=== PATIENT | female | born 1985 | race Caucasian/White ===

== ENCOUNTER 2019-12-31 12:12 | Emergency (ER) | payer MEDICAID ==
[~2019-12-31] VITALS: Ht 165.1 cm; Wt 60.0 kg
[2019-12-31 12:56] VITALS: BP 116/32
== END 2019-12-31 17:17 | disposition left against medical advice (07) ==
LOC: ER 12:12
DX: R50.9 Fever, unspecified (principal); R06.02 Shortness of breath; Z53.21 Procedure and treatment not carried out due to patient leaving prior to being seen by health care provider

== ENCOUNTER 2020-01-07 16:18 | Emergency (ER) | payer MEDICAID ==
[~2020-01-07] VITALS: Ht 165.1 cm; Wt 60.0 kg
[2020-01-07 16:29] VITALS: BP 137/80
== END 2020-01-07 18:15 | disposition left against medical advice (07) ==
LOC: ER 16:18
DX: R05 Cough (principal); Z53.21 Procedure and treatment not carried out due to patient leaving prior to being seen by health care provider